=== PATIENT | male | born 1955 | race Caucasian/White ===

== ENCOUNTER → 2017-12-18 16:39 | Outpatient (CLI) | payer OTHER, SELFPAY ==
--- NOTE | 2017-12-18 16:40 | DI.RAD.S_ITS ---
PROCEDURE: XR HAND LT MIN 3V INDICATIONS: L hand pain TECHNIQUE: 3 views of the hand(s) acquired. COMPARISON: None. FINDINGS: Bones: No fractures or dislocations. Carpal bones are normally aligned. No suspicious bony lesions. Mild diffuse PIP and first MCP degenerative narrowing. Soft tissues: No suspicious soft tissue calcifications. IMPRESSION: No visualized acute fracture or dislocation. However, if clinical concern and/or pain persist, short interval imaging followup in 7-10 days is recommended, as occult injury cannot be definitively excluded. Dictated by: Angelika Turk M.D. on 12/18/2017 at 16:57 Approved by: Angelika Turk M.D. on 12/18/2017 at 16:58
== END ==
PROVIDERS: Visit Provider Physician Assistant
DX: M79.642 Pain in left hand (principal)
CPT/HCPCS: 73130

== ENCOUNTER → 2018-01-10 10:39 | Outpatient (CLI) | payer OTHER, SELFPAY ==
[2018-01-10 11:05] LABS: Influenza A and B by PCR Rapid Negative (Negative)
== END ==
PROVIDERS: Visit Provider Physician Assistant
DX: R68.89 Other general symptoms and signs (principal)
CPT/HCPCS: 87400

== ENCOUNTER → 2018-09-02 10:36 | Outpatient (CLI) | payer OTHER, SELFPAY ==
[2018-09-02 11:54] LABS: Alanine Aminotransferase 19 IU/L (21-72); Albumin 4.1 g/dL (3.5-5.0); Albumin Globulin Ratio 1.4 (1.0-2.8); Alkaline Phosphatase 76 U/L (38-126); Amylase 204 U/L (30-110); Aspartate Aminotransferase 16 IU/L (17-59); Bilirubin Total 0.6 mg/dL (0.2-1.3); Blood Urea Nitrogen 19 mg/dL (9-20); Calcium 9.4 mg/dL (8.4-10.2); Carbon Dioxide 28 mmol/L (22-32); Chloride 107 mmol/L (98-107); Estimated Glomerular Filt Rate > 60.0 mL/min (>60); Globulin 2.9 g/dL (1.7-4.1); Glucose 109 mg/dL (80-110); HEMOLYSIS < 15 (0-50); Lipase 690 U/L (23-300); Potassium 4.3 mmol/L (3.4-5.1); Sodium 142 mmol/L (137-145)
[2018-09-02 12:08] LABS: Free T4, Direct Thyroxine 1.04 ng/dL (0.78-2.19)
[2018-09-02 12:21] LABS: Thyroid Stimulating Hormone 0.99 uIU/mL (0.47-4.68)
[2018-09-02 14:59] LABS: Hemoglobin A1C% w Est Avg Glu 5.4 % (4.0-6.0)
== END ==
PROVIDERS: PCP Internal Medicine; Visit Provider Internal Medicine
DX: E11.9 Type 2 diabetes mellitus without complications (principal); E78.5 Hyperlipidemia, unspecified; I73.9 Peripheral vascular disease, unspecified
CPT/HCPCS: 36415; 80053; 82150; 83036; 83690; 84439; 84443

== ENCOUNTER 2018-10-23 21:12 | Emergency (ER) | payer OTHER, SELFPAY ==
[2018-10-23 21:23] VITALS: BP 165/83; PULSE 65; RESP 20; TEMP 36.6; O2SAT 97; BMI 26.3
[2018-10-23 22:59] VITALS: PULSE 56
--- NOTE | 2018-10-23 23:04 | PC.NURSE ---
pt arrived with c/o bruising in RUE. pt with h/o AAA repair a few years ago as well as multiple stents in BL LE's. Eccymosis of distal R Forearm. 2+ pulse +CSM. takes warfarin daily. INR checked today but pt [facility] not [facility]. denies CP. reports SOB which has been since he strated thinner. does not endorse any increased SOB. AAOx3. RR even and unlabored. lungs clear. Skin PWD. 18G IV placed in R AC. labs drawn and sent. RT in room for EKG. awaiting MD assessment
[2018-10-23 23:10] VITALS: BP 176/79; PULSE 56; RESP 16; O2SAT 98
[2018-10-23 23:19] LABS: Add Manual Diff / Slide Review NO; Basophils Absolute Auto 100 /uL (0-100); Basophils Percent Auto 1.4 % (0-2); Eosinophils Absolute Auto 400 /uL (0-450); Eosinophils Percent Auto 3.7 % (2-4); Hematocrit 38.9 % (41-53); Hemoglobin 13.4 g/dL (13.5-17.5); Lymphocytes Absolute Auto 2700 /uL (1100-4500); Lymphocytes Percent Auto 27.7 % (25-40); Mean Corpuscular HGB Conc 34.6 % (30-36); Mean Corpuscular Hemoglobin 30.8 PG (26-34); Mean Corpuscular Volume 89.2 fL (80-100); Monocytes Absolute Auto 800 /uL (0-900); Monocytes Percent Auto 8.2 % (3-14); Neutrophils Absolute Auto 5800 /uL (1500-7000); Platelet Count 178 X10^3/uL (150-400); Prothrombin Time 47.6 SECONDS (10.1-12.7); Red Blood Cell Count 4.36 X10^6/uL (4.5-5.9); Red Cell Distribution Width 13.4 % (11.6-14.8); White Blood Cell Count 9.9 X10^3/uL (4.5-11.0)
[2018-10-23 23:22] LABS: Blood Urea Nitrogen 26 mg/dL (9-20); Calcium 9.5 mg/dL (8.4-10.2); Carbon Dioxide 26 mmol/L (22-32); Chloride 108 mmol/L (98-107); Estimated Glomerular Filt Rate > 60.0 mL/min (>60); Glucose 103 mg/dL (80-110); HEMOLYSIS 19 (0-50); Potassium 3.9 mmol/L (3.4-5.1); Sodium 140 mmol/L (137-145)
--- NOTE | 2018-10-23 23:24 | ED.EXTPRO ---
HPI - Extremity Problem General Chief complaint: Extremity Problem,Nontraumatic Stated complaint: RT FOREARM BRUISING, NO KNOWN INJURY Time Seen by Provider: 10/23/18 23:23 Source: patient Mode of arrival: ambulatory Limitations: no limitations History of Present Illness HPI Narrative: Patient is a 63-year-old male with history of peripheral vascular disease on Coumadin who presents with right wrist contusion and swelling at the right distal wrist ongoing for the last few days Patient states that he actually had 2 or 3 contusions of that arm within the last couple of weeks but they all went away. He states he typically does get contusions because he is on Coumadin from lifting or touching anything. He is not sure where this contusion came from he does not remember specifically doing anything. He is able to move his fingers he has no numbness or tingling. They were told by physicians that if he has these big bruises or swelling to immediately come to emergency department. He did spend all day at the [facility] having ultrasounds checking his stents. He has a MD Complaint: extremity swelling Pain Consistency: constant Location: right and upper extremity Related Data Home Medications Medication Instructions Recorded Confirmed [THC CREAM] TOPICAL #0 12/19/16 09/02/18 aspirin 81 mg tablet,delayed 81 mg PO DAILY 12/18/17 09/02/18 release atenolol See Rx Instructions PO DAILY 06/03/18 09/02/18 atorvastatin 40 mg tablet 40 mg PO DAILY #90 tab 06/03/18 09/02/18 cholecalciferol (vitamin D3) 1,000 1,000 unit PO DAILY 06/03/18 09/02/18 unit capsule lisinopril 1 each PO DAILY 06/03/18 09/02/18 multivitamin 1 tab PO DAILY 06/03/18 09/02/18 omeprazole 1 cap PO DAILY 06/03/18 09/02/18 trazodone 50 mg tablet 50 mg PO BEDTIME PRN 06/03/18 09/02/18 warfarin 1 tab PO DAILY 06/03/18 09/02/18 metformin 500 each PO DAILY 09/02/18 09/02/18 Allergies Allergy/AdvReac Type Severity Reaction Status Date / Time No Known Drug Allergies Allergy Verified 09/02/18 10:02 Review of Systems Review of Systems Narrative: GENERAL: Denies chills,fever HEENT: Denies throat pain RESPIRATORY: Denies dyspnea, cough, wheezing CARDIOVASCULAR: Denies chest pain, palpitations GASTROINTESTINAL: Denies nausea, vomiting MUSCULOSKELETAL: Denies extremity pain, injury SKIN: Swelling see HPI NEUROLOGIC: Denies weakness, dizziness, headache, numbness 8 point review of systems is negative except for those stated above and HPI [facility] Medical History Chronic back pain (Chronic) Diabetes type 2, controlled (Chronic) Dry skin (Chronic) GERD (gastroesophageal reflux disease) (Chronic) Hearing loss (Chronic) Hyperlipidemia (Chronic) Hypertension (Chronic) Lumbar spine pain (Chronic) Obstructive sleep apnea (Chronic) Peripheral vascular disease (Chronic) Recurrent sinusitis (Chronic) Surgical History AAA (abdominal aortic aneurysm) (Chronic) Anesthesia (Resolved) H/O endovascular stent graft for abdominal aortic aneurysm (Inactive) History of back surgery (Resolved) History of shoulder surgery (Resolved) S/P aorto-bifemoral bypass surgery (Resolved ~2017) S/P cholecystectomy (Resolved) Family History Father Oat cell carcinoma Brother Colon cancer Diabetes mellitus Hypertension Hyperlipidemia Mother Diabetes mellitus Brother Stroke Bedridden Social History Smoking Status: Current every day smoker Family History Father Oat cell carcinoma Brother Colon cancer Diabetes mellitus Hypertension Hyperlipidemia Mother Diabetes mellitus Brother Stroke Bedridden Social History Smoking Status: Current every day smoker Exam Initial Vital Signs Initial Vital Signs: Vital Signs Temperature 97.8 F 10/23/18 21:23 Pulse Rate 65 10/23/18 21:23 Respiratory Rate 20 10/23/18 21:23 Blood Pressure 165/83 H 10/23/18 21:23 Pulse Oximetry 97 10/23/18 21:23 GENERAL: Alert male no acute distress HEENT: Head atraumatic,EOMI, pupils reactive CARDIOVASCULAR: Regular rate and rhythm without murmurs, rubs or gallops. RESPIRATORY: Breath sounds equal bilaterally, no wheezes rales or rhonchi. ABDOMEN: Soft, nontender. Normoactive bowel sounds all 4 quadrants. No guarding or rebound. EXTREMITIES: Normal range of motion, no clubbing or edema. 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 SKIN: Contusion noted right distal is all wrist localized to the area and mild swelling no erythema no active bleeding Course Orders Ordered: ED Orders 10/23/18 22:55 Basic Metabolic Panel Stat Complete Blood Count AUTO DIFF Stat Prothrombin Time INR Stat 10/23/18 23:08 EKG-12 Lead Stat 10/23/18 23:34 US periph venous up extrem rt Stat Vital Signs Vital signs: Vital Signs - 8 hr 10/23/18 22:59 10/23/18 23:10 10/23/18 23:45 Pulse Rate 56 L 55 L Pulse Rate [Right Radial] 56 L Respiratory Rate 16 Blood Pressure 158/93 H Blood Pressure [Left Arm] 176/79 H Pulse Oximetry 98 99 MDM - Extremity (Nontraumatic) Lab Data Result diagrams: 10/23/18 22:55 10/23/18 22:55 Labs: Lab Results 10/23/18 10/23/18 10/23/18 Range/Units 22:55 22:55 22:55 WBC 9.9 (4.5-11.0) X10^3/uL RBC 4.36 L (4.5-5.9) X10^6/uL Hgb 13.4 L (13.5-17.5) g/dL Hct 38.9 L (41-53) % MCV 89.2 (80-100) fL MCH 30.8 (26-34) PG MCHC 34.6 (30-36) % RDW 13.4 (11.6-14.8) % Plt Count 178 (150-400) X10^3/uL Neut % (Auto) 59.0 (50-75) % Lymph % (Auto) 27.7 (25-40) % [place] % (Auto) 8.2 (3-14) % Eos % (Auto) 3.7 (2-4) % Baso % (Auto) 1.4 (0-2) % Neut # (Auto) 5800 (3635-7924) /uL Lymph # (Auto) 2700 (2244-7855) /uL [place] # (Auto) 800 (0-900) /uL Eos # (Auto) 400 (0-450) /uL Baso # (Auto) 100 (0-100) /uL PT 47.6 H (10.1-12.7) SECONDS INR 4.0 H (0.9-1.3) Sodium 140 (137-145) mmol/L Potassium 3.9 (3.4-5.1) mmol/L Chloride 108 H (98-107) mmol/L Carbon Dioxide 26 (22-32) mmol/L BUN 26 H (9-20) mg/dL Creatinine 1.00 (0.66-1.25) mg/dL Estimated GFR > 60.0 (>60) mL/min BUN/Creatinine Ratio 26.0 H (6-22) Glucose 103 (80-110) mg/dL Calcium 9.5 (8.4-10.2) mg/dL ECG Data Attestation EKG: I personally reviewed and interpreted this ECG as follows: Prior ECG tracings: available for review Interpretation: Sinus rhythm rate [address] changes no T-wave inversions similar to previous EKG in 2017. 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 He has an INR of 4 this is an unlikely presentation for a upper extremity DVT. Family is concerned, apparently told by other physicians if he has large bruising to be evaluated immediately. I discussed ultrasound however I do not think an arterial is necessary in fact I do not think a venous ultrasound is necessary at this time either. It is a distal contusion which he has had multiple of which have healed. His INR today is 4.0 he is likely to bruise easily. At this time and do not want any sort of ultrasound and want to go home. I recommended that he elevate the arm and ice it and take Tylenol if needed for pain. I discussed all findings with the patient and spouse, Education has been performed regarding treatment plan, diagnosis, warning signs and symptoms and all concerns have been addressed. Verbally agree with and understood all of the above. Discharge Plan Departure Patient Disposition: Home Clinical Impression: Contusion of arm, right Qualifiers: Encounter type: initial encounter Qualified Code(s): S40.021A - Contusion of right upper arm, initial encounter Discharge Date/Time: 10/23/18 23:45 Instructions: Contusion Activity Restrictions/Additional Instructions: INR today is 4.0 *You have been diagnosed with contusion right *What to do: Breathing is likely due to Coumadin. Recommend elevating above heart icing it is this will help swelling. *Continue to take medications as directed Tylenol 1000 mg every 6 hours if needed for pain *Follow up with your primary care provider in 2-3 days *Return to ER if you should have inability to move fingers, increasing swelling, increasing pain or any new, worsening or concerning symptoms Prescriptions: No Action aspirin [Adult Low Dose Aspirin] 81 mg tablet,delayed release (DR/EC) 81 mg PO DAILY RF: 0 omeprazole 1 cap PO DAILY RF: 0 atenolol See Rx Instructions PO DAILY RF: 0 lisinopril 1 each PO DAILY RF: 0 [THC CREAM] Topical Qty: 0 RF: 0 warfarin 1 tab PO DAILY RF: 0 metformin 500 each PO DAILY RF: 0 atorvastatin 40 mg tablet 40 mg PO DAILY Qty: 90 RF: 0 cholecalciferol (vitamin D3) 1,000 unit capsule 1,000 unit PO DAILY RF: 0 multivitamin tablet 1 tab PO DAILY RF: 0 trazodone 50 mg tablet 50 mg PO BEDTIME PRNRF: 0 Referrals: Moses Belle MD [Primary Care Provider] -
[2018-10-23 23:45] VITALS: BP 158/93; PULSE 55; O2SAT 99
== END 2018-10-23 23:45 | disposition home or self-care (01) ==
PROVIDERS: Emergency Provider Emergency Medicine; Family Provider Student in an Organized Health Care Education/Training Program; PCP Student in an Organized Health Care Education/Training Program
DX: S40.021A Contusion of right upper arm, initial encounter (principal); Z79.01 Long term (current) use of anticoagulants
CPT/HCPCS: 36591; 80048; 85025; 85610; 93005; 99282; 99284

== ENCOUNTER → 2022-05-30 08:51 | Outpatient (CLI) | payer OTHER, SELFPAY ==
[2022-05-30 09:57] LABS: Add Manual Diff / Slide Review NO; Basophils Absolute Auto 100 /uL (0-100); Basophils Percent Auto 1.4 % (0-2); Eosinophils Absolute Auto 500 /uL (0-450); Eosinophils Percent Auto 6.9 % (2-4); Hematocrit 43.5 % (41-53); Hemoglobin 14.7 g/dL (13.5-17.5); Lymphocytes Absolute Auto 1400 /uL (1100-4500); Lymphocytes Percent Auto 19.5 % (25-40); Mean Corpuscular HGB Conc 33.8 % (30-36); Mean Corpuscular Hemoglobin 29.5 PG (26-34); Mean Corpuscular Volume 87.5 fL (80-100); Monocytes Absolute Auto 600 /uL (0-900); Monocytes Percent Auto 8.5 % (3-14); Neutrophils Absolute Auto 4600 /uL (1500-7000); Neutrophils Percent Auto 63.7 % (50-75); Platelet Count 171 X10^3/uL (150-400); Red Blood Cell Count 4.97 X10^6/uL (4.5-5.9); Red Cell Distribution Width 13.2 % (11.6-14.8); White Blood Cell Count 7.2 X10^3/uL (4.5-11.0)
[2022-05-30 10:05] LABS: Alanine Aminotransferase 19 IU/L (<50); Albumin 4.2 g/dL (3.5-5.0); Albumin Globulin Ratio 1.3 (1.0-2.8); Alkaline Phosphatase 85 U/L (38-126); Aspartate Aminotransferase 20 IU/L (17-59); BUN Creatinine Ratio 13.7 (6-22); Bilirubin Total 0.5 mg/dL (0.2-1.3); Blood Urea Nitrogen 17 mg/dL (9-20); Calcium 9.1 mg/dL (8.4-10.2); Carbon Dioxide 28 mmol/L (22-32); Chloride 105 mmol/L (98-107); Cholesterol 122 mg/dL (140-199); Estimated Glomerular Filt Rate > 60 mL/min (>60); Globulin 3.2 g/dL (1.7-4.1); Glucose 126 mg/dL (80-110); HDL Cholesterol 35 mg/dL (40-60); HEMOLYSIS < 15 (0-50); LDL Cholesterol Calculated 54 mg/dL (<100); Sodium 141 mmol/L (137-145); Total Protein 7.4 g/dL (6.3-8.2); Triglycerides 164 mg/dL (35-150)
[2022-05-30 10:51] LABS: Hep C Virus Ab w/Reflex Quant NEGATIVE s/c (NEGATIVE)
[2022-05-30 11:25] LABS: Creatinine Urine Random 343.8 mg/dL
[2022-05-30 11:28] LABS: Microalbumi Creatinin Ratio Ur 16.8 ug/mg CR (<30); Microalbumin Urine Random 5.8 mg/dL (0-1.6)
[2022-05-31 05:38] LABS: Labcorp Hemoglobin (Hb) A1c 5.7 % (4.8-5.6)
== END ==
PROVIDERS: Family Provider Student in an Organized Health Care Education/Training Program; PCP Internal Medicine; Referring Provider Internal Medicine; Visit Provider Internal Medicine
DX: E11.9 Type 2 diabetes mellitus without complications (principal); E78.5 Hyperlipidemia, unspecified; I10 Essential (primary) hypertension; Z11.9 Encounter for screening for infectious and parasitic diseases, unspecified
CPT/HCPCS: 36415; 80053; 80061; 82043; 82570; 83036; 85025; 86803

== ENCOUNTER → 2022-08-07 11:28 | Outpatient (CLI) | payer OTHER, SELFPAY ==
[2022-08-08 17:36] LABS: Fecal Immunochemical Test Negative (Negative)
== END ==
PROVIDERS: Family Provider Student in an Organized Health Care Education/Training Program; PCP Internal Medicine; Referring Provider Internal Medicine; Visit Provider Internal Medicine
DX: Z12.11 Encounter for screening for malignant neoplasm of colon (principal)
CPT/HCPCS: 82274

== ENCOUNTER → 2022-12-05 09:29 | Outpatient (CLI) | payer OTHER, SELFPAY ==
[2022-12-05 10:49] LABS: Hemoglobin A1C% w Est Avg Glu 5.4 % (4.0-6.0)
[2022-12-05 11:03] LABS: BUN Creatinine Ratio 15.7 (6-22); Blood Urea Nitrogen 22 mg/dL (9-20); Calcium 10.1 mg/dL (8.4-10.2); Carbon Dioxide 24 mmol/L (22-32); Chloride 104 mmol/L (98-107); Estimated Glomerular Filt Rate 55 mL/min (>60); Glucose 128 mg/dL (80-110); HEMOLYSIS < 15 (0-50); Potassium 4.4 mmol/L (3.4-5.1); Sodium 140 mmol/L (137-145)
== END ==
PROVIDERS: Family Provider Student in an Organized Health Care Education/Training Program; PCP Internal Medicine; Referring Provider Internal Medicine; Visit Provider Internal Medicine
DX: E11.9 Type 2 diabetes mellitus without complications (principal); I10 Essential (primary) hypertension
CPT/HCPCS: 36415; 80048; 83036

== ENCOUNTER → 2023-01-08 12:58 | Outpatient (CLI) | payer OTHER, SELFPAY | PROVIDERS: Family Provider Student in an Organized Health Care Education/Training Program; PCP Internal Medicine; Visit Provider Registered Nurse | DX: R31.9 Hematuria, unspecified (principal) | CPT/HCPCS: 87086 ==

== ENCOUNTER → 2023-01-23 11:42 | Outpatient (CLI) | payer OTHER, SELFPAY ==
[2023-01-23 12:54] LABS: BUN Creatinine Ratio 15.2 (6-22); Blood Urea Nitrogen 19 mg/dL (9-20); Estimated Glomerular Filt Rate > 60 mL/min (>60)
== END ==
PROVIDERS: Family Provider Student in an Organized Health Care Education/Training Program; PCP Internal Medicine; Referring Provider Internal Medicine; Visit Provider Internal Medicine
DX: Z01.812 Encounter for preprocedural laboratory examination (principal)
CPT/HCPCS: 36415; 82565; 84520

== ENCOUNTER → 2023-02-01 11:59 | Outpatient (CLI) | payer OTHER, SELFPAY ==
--- NOTE | 2023-02-01 12:01 | DI.CT.S_ITS ---
PROCEDURE: CT IVP A/P W/WO INDICATIONS: hematuria TECHNIQUE: Optional 5 mm thick noncontrast images acquired from the diaphragm to the symphysis pubis. After the administration of intravenous contrast, 5 mm thick images acquired from the diaphragm to the symphysis pubis after a 10-minute delay. 2 mm thick coronal and sagittal reformats were then performed of the kidneys and ureters. For radiation dose reduction, the following was used: automated exposure control, adjustment of mA and/or kV according to patient size. COMPARISON: [facility], CT, ANGIOGRAPHY CHEST AND ABDOMEN, 12/19/2016, 13:55. FINDINGS: Image quality: Excellent. Lung bases: Lung bases are clear. Heart size is normal. Urinary system: There is an ill-defined mass within the midpole of the right kidney which measures 4.6 x 5.6 x 4.2 cm. The left kidney demonstrates normal size and enhancement. No hydronephrosis. The bilateral renal collecting systems demonstrate normal course and caliber. No urothelial mass lesions visualized. The bladder is partially decompressed and has a trabeculated appearance. Other solid organs: Liver is normal in size and enhancement. Gallbladder is surgically absent. Biliary system is non dilated. Pancreas enhances normally. Spleen is normal in size and enhancement. No adrenal nodules. Peritoneum and bowel: Bowel loops demonstrate normal wall thickness and caliber. The appendix is thin walled and contrast and gas filled. There are scattered sigmoid diverticula. No evidence for diverticulitis. No free fluid or air. Nodes and vessels: No retroperitoneal or mesenteric adenopathy by size criteria. Patient is status post aortic endovascular repair. No aneurysmal dilatation of the [place] aorta. There is an extra anatomic femoral femoral bypass graft which appears patent on the delayed phase study. Abdominal wall: No ventral hernias. Pelvis: No pathologic free pelvic fluid. No inguinal adenopathy. There are small bilateral fat containing inguinal hernias. Bones: No suspicious bony lesions. No vertebral body compression fractures. IMPRESSION: 1. Right renal mass suspicious for renal cell carcinoma. No urothelial or vascular extension visualized. No suspicious adenopathy. 2. Trabeculated appearance of the bladder suggesting neurogenic bladder. 3. Normal appendix. Diverticulosis. No acute diverticulitis. Dictated by: Angie Prieto M.D. on 02/01/2023 at 14:42 Approved by: Angie Prieto M.D. on 02/01/2023 at 14:49
== END ==
PROVIDERS: Family Provider Student in an Organized Health Care Education/Training Program; PCP Internal Medicine; Referring Provider Internal Medicine; Visit Provider Internal Medicine
DX: N28.89 Other specified disorders of kidney and ureter (principal); R31.9 Hematuria, unspecified; K57.30 Diverticulosis of large intestine without perforation or abscess without bleeding; K40.20 Bilateral inguinal hernia, without obstruction or gangrene, not specified as recurrent; Z90.49 Acquired absence of other specified parts of digestive tract
CPT/HCPCS: 74178; Q9967

== ENCOUNTER → 2023-03-13 08:39 | Outpatient (CLI) | payer OTHER, SELFPAY ==
[2023-03-13 09:06] LABS: Hemoglobin A1C% w Est Avg Glu 5.3 % (4.0-6.0)
[2023-03-13 09:15] LABS: BUN Creatinine Ratio 15.5 (6-22); Blood Urea Nitrogen 22 mg/dL (9-20); Calcium 9.7 mg/dL (8.4-10.2); Carbon Dioxide 26 mmol/L (22-32); Chloride 104 mmol/L (98-107); Estimated Glomerular Filt Rate 54 mL/min (>60); Glucose 136 mg/dL (80-110); HEMOLYSIS < 15 (0-50); Potassium 4.4 mmol/L (3.4-5.1); Sodium 137 mmol/L (137-145)
== END ==
PROVIDERS: Family Provider Student in an Organized Health Care Education/Training Program; PCP Internal Medicine; Referring Provider Internal Medicine; Visit Provider Internal Medicine
DX: E11.9 Type 2 diabetes mellitus without complications (principal); N18.31 Chronic kidney disease, stage 3a
CPT/HCPCS: 36415; 80048; 83036

== ENCOUNTER → 2023-03-22 16:40 | Outpatient (CLI) | payer OTHER, SELFPAY ==
[2023-03-22 16:41] LABS: Urine Volume 10mL (spun)
[2023-03-22 17:00] LABS: Appearance Urine UA Turbid; Color Urine UA Red; RBC Urine >100/HPF (0-5/HPF); WBC Urine 10-30/HPF (0-5/HPF)
[2023-03-22 17:01] LABS: Bacteria Urine Few (2-10); Culture Indicated Urine Specimen Cultured; Squamous Epithelial Cell Urine None Seen (0-5/HPF)
== END ==
PROVIDERS: Family Provider Student in an Organized Health Care Education/Training Program; PCP Internal Medicine; Visit Provider Specialist
DX: C64.1 Malignant neoplasm of right kidney, except renal pelvis (principal); R31.0 Gross hematuria; N18.31 Chronic kidney disease, stage 3a; I73.9 Peripheral vascular disease, unspecified; Z95.828 Presence of other vascular implants and grafts
CPT/HCPCS: 81001; 87086; 99215